=== PATIENT | female | born 1990 | race Caucasian/White ===

== ENCOUNTER 2022-10-06 14:37 | Emergency (ER) | payer OTHER ==
[~2022-10-06] VITALS: Ht 154.9 cm; Wt 68.0 kg
[2022-10-06] MEDS ORDERED: TETANUS AND DIPHTHERIA TOX/PF 0.5ML SYR (ADULT) IM ONE (17:45)
[2022-10-06] MEDS ORDERED: IBUPROFEN 400MG TABLET PO ONE (17:45)
[2022-10-06] MEDS ORDERED: TETANUS, DIPHTHERIA, PERTUSSIS VAC/PF 0.5ML (>10YR OLD) IM ONE (18:15)
[2022-10-06 18:28] VITALS: BP 138/78
[2022-10-06] MEDS ORDERED: AMOX1TAB16 MT (18:44)
== END 2022-10-06 19:16 | disposition home or self-care (01) ==
LOC: ER 14:37
DX: S81.052A Open bite, left knee, initial encounter (principal); W54.0XXA Bitten by dog, initial encounter; Y93.9 Activity, unspecified; Y92.89 Other specified places as the place of occurrence of the external cause; Z23 Encounter for immunization; Z71.85 Encounter for immunization safety counseling
CPT/HCPCS: 73560; 90471; 90714; 90715; 99283